=== PATIENT | female | born 1935 | race American Indian/Alaskan Native ===

== ENCOUNTER 2018-10-18 17:46 | Emergency (ER) | payer MEDICARE, MEDICAID ==
[2018-10-18 17:49] VITALS: RESP 16
[2018-10-18 17:50] VITALS: BMI 25.5
[2018-10-18] MEDS ORDERED: Sodium Chloride 0.9% 1,000 ML IV STA (19:25)
--- NOTE | 2018-10-18 20:11 | ED PDOC ---
HPI: Neurologic - General Time Seen by Provider: 10/18/18 19:10 Chief Complaint (Nursing): GI Problem Chief Complaint (Provider): Weakness Source: patient, family (granddaughter) Exam Limitations: no limitations - History of Present Illness Timing/Duration: other (x 2 days) Associated Symptoms: weakness, other (headache and lightheadedness) Allergies/Adverse Reactions: Allergies No Known Allergies Allergy (Verified 10/18/18 17:53) Additional Complaint(s): 83 year old female with a history of high cholesterol presents to the ED for evaluation of intermittent lightheadedness, generalized weakness and a headache that comes and goes for 2 days. Granddaughter provides additional history. Today, symptoms became associated with nausea and diarrhea then shortness of breath and vomiting. Currently, the patient feels improved besides mild lightheadedness. Denies thunderclap headache/worst headache, fever, abdominal pain, cough and URI symptoms. PMD: none provided Past Medical History Reviewed: Historical Data Vital Signs: Last Vital Signs Temp 97.8 F 10/18/18 17:48 Pulse 77 10/18/18 17:48 Resp 16 10/18/18 17:48 BP 144/84 10/18/18 17:48 Pulse Ox 99 10/18/18 17:48 Primary Care Provider: DoctorKae - Medical History PMH: Hypercholesterolemia - Surgical History Surgical History: No Surg Hx - Family History Family History: States: Unknown Family Hx - Social History Current smoker - smoking cessation education provided: No Alcohol: None Drugs: Denies - Allergies Allergies/Adverse Reactions: Allergies Allergy/AdvReac Type Severity Reaction Status Date / Time No Known Allergies Allergy Verified 10/18/18 17:53 Review of Systems ROS Statement: Except As Marked, All Systems Reviewed And Found Negative Constitutional: Negative for: Fever, Chills ENT: Negative for: Nose Congestion Respiratory: Positive for: Shortness of Breath. Negative for: Cough, Sputum Gastrointestinal: Positive for: Nausea, Vomiting, Diarrhea. Negative for: Abdominal Pain Physical Exam - Reviewed Nursing Documentation Reviewed: Yes Vital Signs Reviewed: Yes - Physical Exam Appears: Positive for: Non-toxic, No Acute Distress Head Exam: Positive for: ATRAUMATIC, NORMAL INSPECTION, NORMOCEPHALIC Skin: Positive for: Normal Color, Warm, Dry Eye Exam: Positive for: EOMI, Normal appearance, PERRL ENT: Positive for: Normal ENT Inspection Neck: Positive for: Normal, Painless ROM, Supple Cardiovascular/Chest: Positive for: Regular Rate, Rhythm. Negative for: Murmur Respiratory: Positive for: Normal Breath Sounds. Negative for: Wheezing, Respiratory Distress Gastrointestinal/Abdominal: Positive for: Normal Exam, Soft. Negative for: Tenderness Back: Positive for: Normal Inspection. Negative for: L CVA Tenderness, R CVA Tenderness Extremity: Positive for: Normal ROM (x 4). Negative for: Deformity Neurological/Psych: Positive for: Awake, Alert, Normal Tone, Oriented (x 3). Negative for: Motor/Sensory Deficits - Laboratory Results Result Diagrams: 10/18/18 20:16 10/18/18 20:16 - ECG O2 Sat by Pulse Oximetry: 99 (RA) Pulse Ox Interpretation: Normal Medical Decision Making Medical Decision Makin:21 Impression: lightheadedness, headache, generalized weakness r/o vertigo, electrolyte abnormality, dehydration, intracranial abnormality Initial Plan: --CT Head w/o contrast --CBC --CMP --NS IV 200 mls/hr 20:46 CT Head FINDINGS: BRAIN Chronic periventricular and subcortical microvascular disease is seen. VENTRICLES: There is generalized parenchymal atrophy noted as demonstrated by symmetrical dilatation of ventricles and sulci. ORBITS: The orbits are unremarkable. SINUSES AND MASTOIDS: The paranasal sinuses and mastoid air cells are clear. BONES: No fracture. SOFT TISSUES: Unremarkable. MISCELLANEOUS: No acute intracranial pathology. IMPRESSION: 1. There is generalized parenchymal atrophy noted as demonstrated by symmetrical dilatation of ventricles and sulci. 2. Chronic periventricular and subcortical microvascular disease is seen. 3. No acute intracranial pathology. 2100 pt and famuily aware of results of CT. pt and family aware of lab results. pt states she feels completely better, no dizziness, vomiting or other pain. pt noted with stable gait stable for dc. abnd outpt follow up Scribe Attestation: Documented by Nyla Willett, acting as a scribe for David Haque MD. Provider Scribe Attestation: All medical record entries made by the Scribe were at my direction and personally dictated by me. I have reviewed the chart and agree that the record accurately reflects my personal performance of the history, physical exam, medic al decision making, and the department course for this patient. I have also personally directed, reviewed, and agree with the discharge instructions and disposition. Disposition - Clinical Impression Clinical Impression: Gastroenteritis - Patient ED Disposition Is Patient to be Admitted: No Counseled Patient/Family Regarding: Studies Performed, Diagnosis, Need For Followup - Disposition Disposition: Routine/Home Disposition Time: 21:25 Condition: IMPROVED Additional Instructions: follow up with your primary doctor in 1-2 days stay hydrated return to the ED with any worsening or concerning symptoms Instructions: Viral Gastroenteritis, Adult (DC) Forms: [employer] (Welsh)
[2018-10-18 20:34] LABS: BASO % 0.2 % (0.0-2.0); HEMOGLOBIN 13.9 g/dL (12.0-16.0); LYMPH # 1.1 K/uL (1.0-4.3); LYMPH % 9.8 % (20.0-40.0); MEAN CELL VOLUME 86.8 fl (81.0-99.0); MEAN CORPUSCULAR HEMOGLOBIN 28.4 pg (27.0-31.0); MEAN CORPUSCULAR HGB CONC 32.7 g/dL (33.0-37.0); MEAN PLATELET VOLUME 10.1 fl (7.2-11.7); MONO # 0.3 K/uL (0.0-0.8); MONO % 2.6 % (0.0-10.0); NEUT # 9.7 K/uL (1.8-7.0); NEUT % 87.4 % (50.0-75.0); NRBC % 0.1 % (0.0-0.0); PLATELET COUNT 150 K/uL (130-400); RBC 4.91 Mil/uL (3.80-5.20); RED CELL DISTRIBUTION WIDTH 14.2 % (11.5-14.5); WHITE BLOOD COUNT 11.1 K/uL (4.8-10.8)
[2018-10-18 20:38] LABS: ALB/GLOB RATIO 1.5 (1.0-2.1); ALBUMIN 4.8 g/dL (3.5-5.0); ALT/SGPT 26 U/L (9-52); AST/SGOT 30 U/L (14-36); BLOOD UREA NITROGEN 14 mg/dl (7-17); CALCIUM 10.2 mg/dL (8.4-10.2); GFR NON-AFRICAN AMERICAN > 60
[2018-10-18 21:27] LABS: BANDS 3 % (0-2); LYMPHOCYTE 11 % (20-50); MONOCYTE 3 % (0-10); NEUTROPHIL 83 % (42-75); TOTAL CELLS COUNTED 100
[2018-10-18 21:29] LABS: PLATELET ESTIMATE NORMAL (NORMAL)
[2018-10-18 22:42] VITALS: BP 134/80; PULSE 82; TEMP 98.2
--- NOTE | 2018-10-19 10:00 | CT ---
Date of service: 10/18/2018 PROCEDURE: CT HEAD WITHOUT CONTRAST. HISTORY: headache COMPARISON: None available. TECHNIQUE: Axial computed tomography images were obtained through the head/brain without intravenous contrast. Radiation dose: Total exam DLP = 723.14 mGy-cm. This CT exam was performed using one or more of the following dose reduction techniques: Automated exposure control, adjustment of the mA and/or kV according to patient size, and/or use of iterative reconstruction technique. FINDINGS: HEMORRHAGE: No intracranial hemorrhage. BRAIN: No mass effect or edema. There are generalized cerebral atrophy and chronic microvascular ischemic changes. VENTRICLES: Unremarkable. No hydrocephalus. CALVARIUM: Unremarkable. PARANASAL SINUSES: Unremarkable as visualized. No significant inflammatory changes. MASTOID AIR CELLS: Unremarkable as visualized. No inflammatory changes. OTHER FINDINGS: None. IMPRESSION: Lysed cerebral atrophy and chronic appearing microvascular ischemic changes posterior parietal lobes most notably. Concordant results (preliminary interpretation) provided by [facility].
[2018-10-22 19:46] VITALS: O2SAT 99
== END 2018-10-18 22:41 | disposition home or self-care (01) ==
LOC: H.ER 17:46
DX: K52.9 Noninfective gastroenteritis and colitis, unspecified (principal); E78.00 Pure hypercholesterolemia, unspecified
CPT/HCPCS: 70450; 80053; 85025; 99285; J7030